=== PATIENT | female | born 1945 | race Caucasian/White ===

== ENCOUNTER 2017-06-30 08:10 | Day surgery (SDC) | payer OTHER ==
[~2017-06-30] VITALS: Ht 165.1 cm; Wt 78.0 kg
[~2017-06-30 08:10] MED LIST: LORA0.5T PO; METO10TA PO; METO25 PO; SIMV20TA PO; ZOLP1TAB32 PO
[2017-06-30 08:33] VITALS: BP 109/67; PULSE 69; RESP 18; TEMP 98.2; O2SAT 95
[2017-06-30] MEDS ORDERED: ATOR40TA16 PO (08:44)
[2017-06-30] MEDS ORDERED: METO50TA11 PO (08:44)
[2017-06-30] MEDS ORDERED: VENL75CA44 PO (08:44)
[2017-06-30] MEDS ORDERED: OMEP20TA PO (08:44)
[2017-06-30] MEDS ORDERED: LEVO50TA4 PO (08:44)
[2017-06-30] MEDS ORDERED: ASPI81CH37 CHEW (08:44)
[2017-06-30] MEDS ORDERED: AMBI5TAB PO (08:44)
[2017-06-30] MEDS ORDERED: ceFAZolin 2 GM PREMIX 50 ML - implanted port removal IV SCH (09:00)
[2017-06-30] MEDS ORDERED: fentaNYL CITRATE 250 MCG/5 ML AMP ONE (09:57)
[2017-06-30] MEDS ORDERED: MIDAZOLAM HCL 2 MG/2 ML VIAL ONE (09:57)
[2017-06-30] MEDS ORDERED: LIDOCAINE 2%/EPINEPHrine PF 1:200,000 20ML SDV ONE (10:17)
[2017-06-30 11:00] VITALS: BP 118/72; PULSE 82; RESP 18; TEMP 97.8; O2SAT 99
--- NOTE | 2017-06-30 11:07 | PD.RAD ---
Post Procedure Progress Note Pre Procedure Diagnosis: (1) Ovarian cancer in remission Post Procedure Diagnosis: (1) Ovarian cancer in remission Procedure Date: Jun 30, 2017 Supervising Radiologist: Vladislav Huber Proceduralist/Assist: Chapito Lim RT(R), Bernard Flanagan RT(R)() Anesthesia: Local, Analgesia, Conscious Sedation Plan of Activity Patient to Unit: ROPU Patient Condition: Good See PACS Report for procedural detail/treatment Central Venous Access Device Procedure 1 Right Internal Jugular Infusaport Removal single lumen [place]: 8 Vladislav Huber MD Jun 30, 2017 11:07
[2017-06-30 11:15] VITALS: BP 116/70; PULSE 69; RESP 18; O2SAT 92
--- NOTE | 2017-06-30 11:17 | PD.RAD ---
Post Procedure Progress Note Pre Procedure Diagnosis: (1) Ovarian cancer in remission Post Procedure Diagnosis: (1) Ovarian cancer in remission Procedure Date: Jun 30, 2017 Supervising Radiologist: Vladislav Huber Proceduralist/Assist: Chapito Lim RT(R), Bernard Flanagan RT(R)() Anesthesia: Analgesia, Conscious Sedation Plan of Activity Patient to Unit: ROPU Patient Condition: Good See PACS Report for procedural detail/treatment Central Venous Access Device Procedure 1 Right Internal Jugular Infusaport Removal single lumen Vladislav Huber MD Jun 30, 2017 11:17
[2017-06-30 11:45] VITALS: BP 116/73; PULSE 57; RESP 18; O2SAT 92
[2017-06-30 12:15] VITALS: BP 109/71; PULSE 54; RESP 18; O2SAT 95
--- NOTE | 2017-06-30 12:46 | RADRPT ---
EXAM DATE/TIME: 06/30/2017 00:00 [facility] COMPARISON: No previous studies available for comparison. INDICATIONS : Patient with history of ovarian cancer in need of right port removal. MEDICAL HISTORY : 1.IBS 2.Anxiety 3.Neuropathy 4.Ovarian cancer 5.Ulcers SURGICAL HISTORY : 1.Basal cell cancer 2.Hysterectomy 3.Tonsillectomy 4.Cholecystectomy ENCOUNTER: Subsequent ACUITY: > 1 year PAIN SCORE: 0/10 SEDATION TIME: 15 minutes 1.) 2 mg midazolam (Versed) IV 2.) 150 mcg fentanyl (Sublimaze) IV Prophylactic antibiotics were administered with appropriate pre-procedure timing. Vancomycin within 2 hrs of procedure, Ancef (or alternative) within 1 hr of procedure. PROCEDURE : 1. Removal of [id number]. 2. Conscious sedation with continuous EKG and oximetry monitoring. The risk, benefits and potential complications of [id number] removal were discussed. Written conse nt was obtained. The patient was placed supine. The chest wall was prepped in sterile fashion. Full sterile techniqu e was used, including cap, mask, sterile gloves and gown, and a large sterile sheet. Hand hygiene an d 2% chlorhexidine and/or Betadine/alcohol prep was utilized per protocol for cutaneous antisepsis. The skin and subcutaneous tissues were infiltrated with local anesthetic solution. A small incision w as made, the subcutaneous pocket was opened. The port was dissected from the subcutaneous tissues and easily removed in one piece. The pocket incision was closed with subcuticular Vicryl suture. Steri -Strips were applied. Conscious sedation was performed with the prescribed dosages and duration as above in the presence of an independent trained radiology nurse to assist in the monitoring of the patient. EKG and oximetry remained stable throughout the procedure. The patient tolerated the procedure well and there were no complications. The patient was sent to post anesthesia recovery in stable condition. CONCLUSION: Uncomplicated port removal as above. Vladislav Huber MD on June 30, 2017 at 12:44 Board Certified Radiologist. This report was verified electronically.
== END 2017-06-30 13:10 | disposition home or self-care (01) ==
LOC: HROP 08:10 → HRIP 08:10 → HROP 13:10
PROVIDERS: ATTEND Obstetrics & Gynecology Gynecologic Oncology
DX: Z45.2 Encounter for adjustment and management of vascular access device (principal); C56.9 Malignant neoplasm of unspecified ovary; F41.9 Anxiety disorder, unspecified; Z85.828 Personal history of other malignant neoplasm of skin
CPT/HCPCS: 36589; 99152; J0690; J2250; J3010